=== PATIENT | male | born 1970 | race African-American/Black ===

== ENCOUNTER 2017-04-15 16:04 | Emergency (ER) | payer OTHER ==
[2017-04-15 19:11] VITALS: BP 150/97
--- NOTE | 2017-04-16 15:37 | ED ---
Laceration/Wound HPI - HPI Summary HPI Summary: Patient presents to ED with an avulsion laceration to the left distal index finger. Tetanus UTD. Caught on metal hook in dryer. Denies blood thinners. Moderate amount of bleeding. No bone involvement. He is able to flex and extend the finger without complications. Pulses intact +2 bilaterally. Denies numbness or tingling. He notes to losing his thumb on the ipsilateral hand 2 months ago on a circular saw and it is still healing. - History of Current Complaint Stated Complaint: CUT TO LEFT INDEX FINGER Time Seen by Provider: 04/15/17 16:40 Hx Obtained From: Patient Mechanism of Injury: Sharp/Blunt Trauma Onset/Duration: Sudden Onset Aggravating: Nothing Alleviating: Nothing Timing: Constant Onset Severity: Moderate Current Severity: Moderate Pain Intensity: 5 Pain Scale Used: 0-10 Numeric Associated Signs & Symptoms: Negative Related Hx: Dominant Hand (Right) - Allergy/Home Medications Allergies/Adverse Reactions: Allergies Allergy/AdvReac Type Severity Reaction Status Date / Time No Known Allergies Allergy Verified 06/20/14 07:46 PMH/Surg Hx/FS Hx/Imm Hx Previously Healthy: Yes Endocrine/Hematology History: Denies: Hx Diabetes, Hx Thyroid Disease Cardiovascular History: Denies: Hx Hypertension Respiratory History: Denies: Hx Asthma, Hx Chronic Obstructive Pulmonary Disease (COPD) GI History: Denies: Hx Ulcer - Surgical History Surgery Procedure, Year, and Place: stomach surgery as child - Immunization History Hx Pertussis Vaccination: No Immunizations Up to Date: Unable to Obtain/Confirm Infectious Disease History: No Infectious Disease History: Denies: Hx Hepatitis, Hx Human Immunodeficiency Virus (HIV), History Other Infectious Disease, Traveled Outside the [place] in Last 30 Days - Social History Occupation: Employed Full-time Lives: With Family Alcohol Use: Occasionally Hx Substance Use: No Substance Use Type: Reports: None Hx Tobacco Use: No Smoking Status (MU): Never Smoked Tobacco Review of Systems Constitutional: Negative Eyes: Negative Cardiovascular: Negative Gastrointestinal: Negative Positive: no symptoms reported, see HPI Positive: Arthralgia Positive: Rash Neurological: Negative Psychological: Normal All Other Systems Reviewed And Are Negative: Yes Physical Exam Triage Information Reviewed: Yes Vital Signs On Initial Exam: Initial Vitals Temp Pulse Resp BP Pulse Ox 98.9 F 93 16 152/100 100 04/15/17 16:07 04/15/17 16:07 04/15/17 16:07 04/15/17 16:07 04/15/17 16:07 Vital Signs Reviewed: Yes Appearance: Positive: Well-Appearing, Well-Nourished Skin: Positive: Other - irregular avulsion laceration to left index finger measuring 1.5cm in length, circular with minimal blood supply left to skin. .5cm depth with 1.0cm width. Head/Face: Positive: Normal Head/Face Inspection Neck: Positive: Supple, No Lymphadenopathy Respiratory/Lung Sounds: Positive: Clear to Auscultation, Breath Sounds Present Cardiovascular: Positive: Normal, RRR, Pulses are Symmetrical in both Upper and Lower Extremities Musculoskeletal: Positive: Normal, Strength/ROM Intact Neurological: Positive: Normal, Sensory/Motor Intact, Alert, Oriented to Person Place, Time Psychiatric: Positive: Normal AVPU Assessment: Alert Procedures - Laceration/Wound Repair 1 Location: upper extremity Description: Irregular Anesthesia: Local, 1.0% Betadine Prep?: No Irrigated w/ Saline (ccs): 60 Laceration/Wound Explored: contaminated Closure: Single Layer Debridement: minimal Suture Type: Prolene Layer Closure?: No Sterile Dressing Applied?: No Diagnostics - Vital Signs Vital Signs Temp Pulse Resp BP Pulse Ox 04/15/17 17:30 98.9 F 93 16 150/97 98 04/15/17 16:07 98.9 F 93 16 152/100 100 - Laboratory Lab Statement: Any lab studies that have been ordered have been reviewed, and results considered in the medical decision making process. Laceration Repair Course/Dx - Course Course Of Treatment: Patient presents after an injury to finger needing repair. Irregular avulsion laceration to left index finger measuring 1.5cm in length, circular with minimal blood supply left to skin. .5cm depth with 1.0cm width. 10 - 4-0 non-absorbable sutures placed. local anesthetic around the wound with lido without epi. patient tolerated procedure well. Follow up in 7-9 days for suture removal. antibiotics give d/t contamination and depth of the wound and the possibility of overlaying skin necrosing. patient agrees and will follow up for necrosing of the skin, signs of infection, etc. - Differential Dx Differental Diagnoses: Abrasion, Avulsion, Laceration - Clinical Impression Provider Diagnoses: Avulsion of skin of index finger Discharge - Discharge Plan Condition: Stable Disposition: HOME Prescriptions: Cephalexin CAP* [Keflex CAP*] 500 mg PO QID #28 cap MDD 4 Patient Education Materials: Care For Your Stitches (ED), Laceration (ED) Referrals: Venkata Ornelas MD [Primary Care Provider] - Additional Instructions: Follow up with PCP. Stitches out in 7-9 days. If you notice any black around the edges of the wound, you develop a fever, or there is abnormal drainage from the area, come back to the ED immediately.
== END 2017-04-15 19:11 | disposition home or self-care (01) ==
LOC: ED 16:04
DX: S61.211A Laceration without foreign body of left index finger without damage to nail, initial encounter (principal); W22.8XXA Striking against or struck by other objects, initial encounter; Y92.9 Unspecified place or not applicable
CPT/HCPCS: 12001; 99282

== ENCOUNTER 2017-04-24 17:24 | Emergency (ER) | payer OTHER ==
[2017-04-24 17:32] VITALS: BP 139/89
[2017-04-24] MEDS ORDERED: Benzoin Compound STICK ONE (18:17)
--- NOTE | 2017-04-24 18:55 | UC ---
Blayne Gonzales Aidan, scribed for Chelle Osorio MD on 04/24/17 at 1820 . Hand/Wrist HPI - HPI Summary HPI Summary: 46 y/o male presents to the Urgent Care with an acute need for the removal of 13 stitches on his left index finger. 9 days ago, he cut his left index finger on a washing machine, resulting in a large, mildly painful exposed flap of inner skin. Denies pain complaints. No p/d/w. Has been placing splint during the day. Works in construction, and has been trying to work (denies work note today). No purulence, no redness, no fluctuance. - History Of Current Complaint Chief Complaint: UCSkin Stated Complaint: STITCH REMOVAL-FINGER Time Seen by Provider: 04/24/17 17:50 Hx Obtained From: Patient ?: No Mechanism Of Injury: cut left index finger on washing machine 9 days ago. Onset/Duration: Sudden Onset, Lasting Days, Still Present Severity Initially: Moderate Severity Currently: Mild - no pain Pain Intensity: 0 Pain Scale Used: 0-10 Numeric Character Of Pain: Sharp Aggravating Factor(s): Other - unnkown Alleviating: Other - unknown Associated Signs And Symptoms: Positive: Bruising - Pt left index finger is nearly black, 13 stitches that need removal - Allergies/Home Medications Allergies/Adverse Reactions: Allergies Allergy/AdvReac Type Severity Reaction Status Date / Time No Known Allergies Allergy Verified 06/20/14 07:46 PMH/Surg Hx/FS Hx/Imm Hx Previously Healthy: Yes - Surgical History Surgical History: Yes Surgery Procedure, Year, and Place: stomach surgery as child - Family History Known Family History: Positive: Hypertension - Social History Occupation: Employed Full-time Lives: With Family Alcohol Use: Occasionally Substance Use Type: None Smoking Status (MU): Never Smoked Tobacco Review of Systems Constitutional: Negative Skin: Other - 13 stitches closing a box-shaped laceration on the left index finger Eyes: Negative ENT: Negative Respiratory: Negative Cardiovascular: Negative Gastrointestinal: Negative Genitourinary: Negative Motor: Negative Neurovascular: Negative Musculoskeletal: Negative Neurological: Negative Psychological: Negative All Other Systems Reviewed And Are Negative: Yes Physical Exam Triage Information Reviewed: Yes Appearance: Well-Nourished Vital Signs: Initial Vital Signs Temp 99.5 F 04/24/17 17:30 Pulse 76 04/24/17 17:30 Resp 18 04/24/17 17:30 BP 139/89 04/24/17 17:30 Pulse Ox 100 04/24/17 17:30 Vital Signs Reviewed: Yes Eye Exam: Normal ENT Exam: Normal ENT: Positive: Normal ENT inspection Neck exam: Normal Respiratory Exam: Normal, Other - no dyspnea, no tachypnea, regular respiratory rate Cardiovascular Exam: Normal, Other - heart rate regular Cardiovascular: Positive: RRR, No Murmur, Pulses Normal, Brisk Capillary Refill , Other: - good general skin color Abdominal Exam: Normal Abdomen Description: Positive: Nontender, No Organomegaly, Soft Bowel Sounds: Positive: Present Musculoskeletal Exam: Normal Musculoskeletal: Positive: Strength Intact Neurological Exam: Normal, Other - nonfocal, grossly intact Neurological: Positive: Alert Psychological Exam: Normal, Other - conversing easily and appropriately Psychological: Positive: Age Appropriate Behavior Skin: Positive: Other - 2cm by 1.8cm laceration to the left index finger Flap- like wound sutured as noted, approx 2cm length x 1.8cm width. Flap is dusky, there is mild (appro 2mm) dehiscence distal region, underlying pink granulation. No purulence. No fluctuance. Wound is located directly over pip. Procedures - Procedure Summary Procedure Summary: Sutures removed, steri-strips applied. Hand/Wrist Course/Dx - Course Course Of Treatment: 46 y/o male presents for suture removal. The patient's blood pressure was 139/89, which is slightly hypertensive. He should follow up with his primary care provider within 4 weeks for blood pressure readings and further evaluation. Splint applied by RN. Sutures removed by myself. Steristrips / thin benzoin (to healthy skin) placed. Reviewed wound care instructions and appropriate precautions. Will benefit from f/u pcp, possibly wound clinic if nonhealing. Questions answered to the best of my ability. Rx - mupirocin, to start thursday. - Differential Dx/Diagnosis Provider Diagnoses: Suture removal. Problem wound. Discharge - Discharge Plan Condition: Stable Disposition: HOME Discharge Disposition Comment: Please follow up with your primary care provider within 3 days. Prescriptions: Mupirocin 2% OINT* [Bactroban 2 % Oint*] 1 applic TOPICAL BID #1 tube Patient Education Materials: Stitches Removal (ED), Chronic Wound Care (ED) Referrals: Venkata Ornelas MD [Primary Care Provider] - Additional Instructions: Follow up Dr. Ornelas this week for recheck. Seek medical attention for worse or new problems. Avoid astringents. Splint during the day. Steristrips until Thursday. At that point, you may start using the mupirocin antibiotic ointment. Shower ok, once daily. Avoid direct sun exposure to the affected area as much as possible. The documentation as recorded by the Blayne landry Aidan accurately reflects the service I personally performed and the decisions made by me, Chelle Osorio MD.
== END 2017-04-24 18:44 | disposition home or self-care (01) ==
LOC: UCEAST 17:24
DX: Z48.02 Encounter for removal of sutures (principal)
CPT/HCPCS: 99211; G0463